=== PATIENT | female | born 1985 | race Caucasian/White ===

== ENCOUNTER 2023-09-02 08:30 | Inpatient (IN) | payer OTHER ==
[~2023-09-02] VITALS: Ht 154.9 cm; Wt 59.9 kg
[2023-09-02] MEDS ORDERED: SYNTHROID75 MCG PO (09:29)
[2023-09-02 09:38] LABS: URINE APPEARANCE Cloudy; URINE BILIRRUBIN Negative (NEGATIVE); URINE BLOOD Negative; URINE COLOR Yellow; URINE GLUCOSE Negative (NEGATIVE); URINE LEUKOCYTE Negative; URINE NITRATE Negative; URINE PROTEIN Negative (NEGATIVE); URINE UROBILINOGEN 0.2 E.U./dl
[2023-09-02 09:42] LABS: HEMATOCRIT 43.2 % (36.0-45.00); HEMOGLOBIN 14.5 g/dL (12.0-15.00); MEAN CELL VOLUME 84.9 fL (80.00-100.00); MEAN CORPUSCULAR HEMOGLOBIN 28.5 pg (27.00-32.0); MEAN CORPUSCULAR HGB CONC 33.6 g/dl (32.0-36.0); PLATELET COUNT 399 K/uL (150-450); RED BLOOD COUNT 5.08 M/uL (4.00-6.00); RED CELL DISTRIBUTION WIDTH 14.4 % (11.5-14.5); URINE EPITHELIAL CELLS 7.5 uL (0.0-38.8)
[2023-09-02 09:57] LABS: URINE RBC 1.2 uL (0.0-20.8)
[2023-09-02 10:11] LABS: BILIRUBIN TOTAL 0.51 mg/dL (0.3-1.2); CALCIUM 10.1 mg/dL (8.5-10.1); CREATININE SERUM 0.69 mg/dL (0.55-1.02); GFR 96.82; GLOBULINA 4.4 G/DL (2.4-3.5); POTASSIUM 4.1 mEq/L (3.5-5.1); TOTAL PROTEIN 8.4 gm/dL (6.4-8.2)
[2023-09-02 10:25] LABS: INR 0.99; PARTIAL THROMBOPLASTIN TIME 34.2 SECONDS (22.0-34.0); PROTHROMBIN TIME 10.4 SECONDS (9.0-11.5)
[2023-09-08] MEDS ORDERED: CEFOXITIN SODIUM 2,000 MG VIAL IV ONE (09:26)
[2023-09-08] MEDS ORDERED: THROMBIN,HU/FIBRINOGEN/CALCIUM 10 ML SYRINGE TOP ONE (10:32)
[2023-09-08] MEDS ORDERED: RINGERS SOLUTION,LACTATED 1,000 ML IV SCH (12:15)
[2023-09-08] MEDS ORDERED: MORPHINE SULFATE 4 MG/ML CARTRIDGE IV PRN (12:30)
[2023-09-08] MEDS ORDERED: SIMETHICONE 125 MG CAPSULE PO SCH (13:00)
[2023-09-08 14:10] LABS: HEMATOCRIT 35.5 % (36.0-45.00); MEAN CELL VOLUME 84.8 fL (80.00-100.00); MEAN CORPUSCULAR HEMOGLOBIN 28.2 pg (27.00-32.0); MEAN CORPUSCULAR HGB CONC 33.2 g/dl (32.0-36.0); PLATELET COUNT 312 K/uL (150-450); RED BLOOD COUNT 4.18 M/uL (4.00-6.00); RED CELL DISTRIBUTION WIDTH 14.4 % (11.5-14.5)
[2023-09-08 14:14] LABS: HEMOGLOBIN 11.8 g/dL (12.0-15.00)
[2023-09-08] MEDS ORDERED: KETOROLAC TROMETHAMINE 30 MG VIAL IU SCH (17:00)
[2023-09-08] MEDS ORDERED: CEFOXITIN SODIUM 2,000 MG VIAL IV SCH (17:00)
[2023-09-08 18:36] LABS: HEMATOCRIT 32.1 % (36.0-45.00); HEMOGLOBIN 10.7 g/dL (12.0-15.00); MEAN CELL VOLUME 86.4 fL (80.00-100.00); MEAN CORPUSCULAR HGB CONC 33.5 g/dl (32.0-36.0); PLATELET COUNT 287 K/uL (150-450); RED BLOOD COUNT 3.71 M/uL (4.00-6.00); RED CELL DISTRIBUTION WIDTH 13.9 % (11.5-14.5)
[2023-09-08 18:51] LABS: CALCIUM 8.7 mg/dL (8.5-10.1); CREATININE SERUM 1.14 mg/dL (0.55-1.02); GFR 54.24; POTASSIUM 4.49 mEq/L (3.5-5.1)
[2023-09-08] MEDS ORDERED: DOCUSATE SODIUM 100MG CAP PO SCH (21:00)
[2023-09-08] MEDS ORDERED: FAMOTIDINE/PF 20 MG/2 ML VIAL IV SCH (21:00)
[2023-09-09 05:31] LABS: HEMATOCRIT 27.3 % (36.0-45.00); HEMOGLOBIN 9.4 g/dL (12.0-15.00); MEAN CELL VOLUME 85.7 fL (80.00-100.00); MEAN CORPUSCULAR HEMOGLOBIN 29.7 pg (27.00-32.0); MEAN CORPUSCULAR HGB CONC 34.6 g/dl (32.0-36.0); PLATELET COUNT 237 K/uL (150-450); RED BLOOD COUNT 3.18 M/uL (4.00-6.00)
[2023-09-09 05:54] LABS: CALCIUM 8.2 mg/dL (8.5-10.1); CREATININE SERUM 0.66 mg/dL (0.55-1.02); GFR 101.91; POTASSIUM 4.45 mEq/L (3.5-5.1)
[2023-09-09] MEDS ORDERED: LEVOTHYROXINE SODIUM 75 MCG TABLET PO SCH (06:00)
[2023-09-09] MEDS ORDERED: IBUprofen 800 MG TABLET PO SCH ×2 (06:43→09:00)
[2023-09-09] MEDS ORDERED: OxyCODONE HCL/APAP UD (PERCOCET) PO PRN (06:45)
[2023-09-09] MEDS ORDERED: SIMETHICONE 125 MG CAPSULE PO SCH (09:00)
[2023-09-09] MEDS ORDERED: ENOXAPARIN SODIUM 40 MG/0.4 ML SYRINGE SUBCUTANEO SCH (09:00)
[2023-09-09] MEDS ORDERED: IRON FUM,PS/FOLIC/BCOMP,C NO.9 1 CAP CAPSULE PO SCH (12:45)
[2023-09-10] MEDS ORDERED: LEVOTHYROXINE SODIUM 75 MCG TABLET PO SCH (06:00)
== END 2023-09-10 11:29 | disposition home or self-care (01) | DRG 743 ==
LOC: SURH 09-08 06:54 → O/R 09-08 06:54 → SURG 09-08 08:30 → SURH 09-08 13:26
PROVIDERS: Obstetrics & Gynecology; ADMIT Obstetrics & Gynecology Gynecologic Oncology; ATTEND Obstetrics & Gynecology Gynecologic Oncology
PROC: 0UB90ZZ Excision of Uterus, Open Approach (ICD-10-PCS; 2023-09-08)
PROC: 0UT90ZZ Resection of Uterus, Open Approach (ICD-10-PCS; principal; 2023-09-08 10:15)
DX: N80.102 Endometriosis of left ovary, unspecified depth (principal); Z20.822 Contact with and (suspected) exposure to COVID-19; N80.329 Endometriosis of the posterior cul-de-sac, unspecified depth